=== PATIENT | female | born 1960 | race Caucasian/White ===

== ENCOUNTER 2022-04-18 14:26 | Inpatient (IN) | payer MEDICAID ==
[2022-04-18] MEDS ORDERED: Albuterol/Ipratropium 3.0-0.5 MG/3 ML Neb Soln NEB ONE (15:21)
[2022-04-18] MEDS ORDERED: Acetaminophen 325 MG Tab PO ONE (15:21)
[2022-04-18] MEDS ORDERED: Levalbuterol HCl 1.25 MG/3 ML Neb NEB ONE (16:48)
[2022-04-18] MEDS ORDERED: Levalbuterol HCl 1.25 MG/3 ML Neb ONE (16:50)
[2022-04-18] MEDS ORDERED: Ondansetron 4 MG Tab.DIS PO PRN (17:02)
[2022-04-18] MEDS ORDERED: cefTRIAXone 2 GM in Sodium Chloride 0.9% 100 ML IV SCH (17:15)
[2022-04-18] MEDS: cefTRIAXone 2 GM in Sodium Chloride 0.9% 100 ML IV SCH (18:37)
[2022-04-18] MEDS: Sodium Chloride 0.9% 1,000 ML IV SCH (18:37)
[2022-04-18] MEDS ORDERED: Insulin Regular, Human 100 Units/ML 3 ML Vial SUBCUT PRN (21:31)
[2022-04-18] MEDS: Acetaminophen 325 MG Tab PO PRN (23:09)
[2022-04-18] MEDS: Temazepam 7.5 MG Cap PO PRN (23:09)
[2022-04-18] MEDS: Insulin Regular, Human 100 Units/ML 3 ML Vial SUBCUT SCH (23:12)
[2022-04-19] MEDS: Acetaminophen 325 MG Tab PO PRN ×3 (04:14→19:34)
[2022-04-19] MEDS ORDERED: BETAMETH DIP TOP PRN (08:07)
[2022-04-19] MEDS ORDERED: ZINC TOP PRN (08:07)
[2022-04-19] MEDS ORDERED: Nystatin Topical Powder 15 GM Bottle TOP PRN (08:07)
[2022-04-19] MEDS ORDERED: traMADol 50 MG Tab PO PRN (08:07)
[2022-04-19] MEDS ORDERED: CLOTRIMAZOLE TOP PRN (08:07)
[2022-04-19] MEDS ORDERED: Levalbuterol HCl 0.63 MG/3 ML Neb INH SCH (08:15)
[2022-04-19] MEDS: Sodium Chloride 0.9% 1,000 ML IV SCH ×2 (08:56→22:58)
[2022-04-19] MEDS: Cyclobenzaprine 10 MG Tab PO PRN ×2 (08:57→22:59)
[2022-04-19] MEDS: Cholecalciferol (Vitamin D3) 5,000 UNIT Cap PO SCH (08:57)
[2022-04-19] MEDS: Vitamin B Complex With Vitamin C Cap PO SCH (08:59)
[2022-04-19] MEDS: Pantoprazole 40 MG Tab.CR PO SCH (08:59)
[2022-04-19] MEDS ORDERED: [UNRECOGNIZED DRUG - OTHER] MC SCH (09:00)
[2022-04-19] MEDS ORDERED: SPACER MC SCH (09:00)
[2022-04-19] MEDS ORDERED: [UNRECOGNIZED DRUG - OTHER] SUBCUT SCH (09:00)
[2022-04-19] MEDS ORDERED: Enoxaparin 30 MG/0.3 ML Syringe SUBCUT SCH (09:00)
[2022-04-19] MEDS ORDERED: BLOOD GLUCOSE METER CONTINUOUS SUBCUT SCH (09:00)
[2022-04-19] MEDS: Insulin Regular, Human 100 Units/ML 3 ML Vial SUBCUT SCH ×3 (09:01→19:55)
[2022-04-19] MEDS: Tiotropium Bromide 4 GM Inhalation Spray (2.5mcg/1 dose; 10 doses) INH SCH (09:19)
[2022-04-19] MEDS: Formoterol/Mometasone 100-5 MCG 8.8 GM Inhaler IH SCH ×2 (09:19→20:15)
[2022-04-19] MEDS: Levalbuterol HCl 0.63 MG/3 ML Neb INH SCH ×3 (09:19→20:15)
[2022-04-19] MEDS: Enoxaparin 40 MG/0.4 ML Syringe SUBCUT SCH (10:25)
[2022-04-19] MEDS: LIRAGLUTIDE 18 MG/3 ML SUBCUT SCH (10:28)
[2022-04-19] MEDS ORDERED: Magnesium Sulfate/Water 2 GM in Premix Bag 1 BAG IV ONE (12:15)
[2022-04-19] MEDS: cefTRIAXone 2 GM in Sodium Chloride 0.9% 100 ML IV SCH (18:25)
[2022-04-19] MEDS ORDERED: Montelukast 10 MG Tab PO SCH (21:00)
[2022-04-19] MEDS ORDERED: Pravastatin 20 MG Tab PO SCH (21:00)
[2022-04-19] MEDS: Temazepam 7.5 MG Cap PO PRN (23:09)
[2022-04-20] MEDS: Levalbuterol HCl 0.63 MG/3 ML Neb INH SCH (05:09)
[2022-04-20] MEDS: Tiotropium Bromide 4 GM Inhalation Spray (2.5mcg/1 dose; 10 doses) INH SCH (05:09)
[2022-04-20] MEDS: Formoterol/Mometasone 100-5 MCG 8.8 GM Inhaler IH SCH (05:09)
[2022-04-20] MEDS: Pantoprazole 40 MG Tab.CR PO SCH (08:19)
[2022-04-20] MEDS: Cholecalciferol (Vitamin D3) 5,000 UNIT Cap PO SCH (08:19)
[2022-04-20] MEDS: Vitamin B Complex With Vitamin C Cap PO SCH (08:19)
[2022-04-20] MEDS: Enoxaparin 40 MG/0.4 ML Syringe SUBCUT SCH (08:20)
[2022-04-20] MEDS: Acetaminophen 325 MG Tab PO PRN (08:20)
[2022-04-20] MEDS: LIRAGLUTIDE 18 MG/3 ML SUBCUT SCH (09:40)
[2022-04-20] MEDS: Insulin Regular, Human 100 Units/ML 3 ML Vial SUBCUT SCH (09:43)
[2022-04-20 11:57] VITALS: BP 120/68; PULSE 80
== END 2022-04-20 12:54 | disposition home or self-care (01) | DRG 194 ==
LOC: JD.ED 14:26 → JD.MS 17:02 → JD.ED 17:32
PROVIDERS: ADMIT Internal Medicine; ATTEND Internal Medicine
DX: J18.9 Pneumonia, unspecified organism (principal); J44.0 Chronic obstructive pulmonary disease with (acute) lower respiratory infection; J47.9 Bronchiectasis, uncomplicated; E11.649 Type 2 diabetes mellitus with hypoglycemia without coma; E78.00 Pure hypercholesterolemia, unspecified; K21.9 Gastro-esophageal reflux disease without esophagitis; M19.90 Unspecified osteoarthritis, unspecified site; R32 Unspecified urinary incontinence; F32.A Depression, unspecified; Z96.649 Presence of unspecified artificial hip joint; Z86.010 Personal history of colon polyps; Z79.4 Long term (current) use of insulin; Z79.899 Other long term (current) drug therapy; Z88.5 Allergy status to narcotic agent; Z88.0 Allergy status to penicillin; Z88.6 Allergy status to analgesic agent; Z88.8 Allergy status to other drugs, medicaments and biological substances; Z98.51 Tubal ligation status; Z87.891 Personal history of nicotine dependence
CPT/HCPCS: 36415; 71045; 71045-26; 80053; 81001; 82947; 83735; 85025; 86140; 87040; 87086; 94640; 94660; 94761; 97116-GP; 97162-GP; 97166-GO; 97530-GP; 99285; A9270-GY; J0696; J1650; J1815-GY; J3475; J7030; J7612-GY

== ENCOUNTER 2022-06-20 15:18 | Emergency (ER) | payer MEDICAID ==
[2022-06-20 19:41] VITALS: BP 133/69; PULSE 87
== END 2022-06-20 19:33 | disposition home or self-care (01) ==
LOC: JD.ED 15:18
DX: J18.9 Pneumonia, unspecified organism (principal); J47.1 Bronchiectasis with (acute) exacerbation; E78.00 Pure hypercholesterolemia, unspecified; E11.9 Type 2 diabetes mellitus without complications; Z88.5 Allergy status to narcotic agent; Z88.0 Allergy status to penicillin; Z88.2 Allergy status to sulfonamides; Z88.6 Allergy status to analgesic agent; Z79.899 Other long term (current) drug therapy; Z79.4 Long term (current) use of insulin; Z90.49 Acquired absence of other specified parts of digestive tract
CPT/HCPCS: 36415; 71046; 71046-26; 71250; 71250-26; 80053; 83690; 83735; 83880; 84484; 85025; 93005; 99285

== ENCOUNTER 2024-03-27 11:03 | Day surgery (SDC) | payer MEDICARE, MEDICAID ==
[~2024-03-27 11:03] MED LIST: Sodium Chloride 0.9% 10 ML Syringe FLUSH PRN; Sodium Chloride 0.9% 10 ML Syringe FLUSH SCH
[2024-03-27] MEDS: Lactated Ringers 1,000 ML IV SCH (11:30)
[2024-03-27] MEDS ORDERED: Propofol 200 MG/20 ML SDV ONE ×5 (12:28→13:30)
[2024-03-27] MEDS ORDERED: Lidocaine 2% 5 ML SDV ONE (12:31)
[2024-03-27 14:40] VITALS: BP 125/67; PULSE 81
== END 2024-03-27 14:38 | disposition home or self-care (01) ==
LOC: JD.SDS 11:03
PROVIDERS: ATTEND Surgery
DX: D12.3 Benign neoplasm of transverse colon (principal); D12.2 Benign neoplasm of ascending colon; D12.4 Benign neoplasm of descending colon; K62.1 Rectal polyp; K21.00 Gastro-esophageal reflux disease with esophagitis, without bleeding; K31.89 Other diseases of stomach and duodenum; K44.9 Diaphragmatic hernia without obstruction or gangrene; J44.9 Chronic obstructive pulmonary disease, unspecified; E11.9 Type 2 diabetes mellitus without complications; E78.2 Mixed hyperlipidemia; Z87.891 Personal history of nicotine dependence; Z79.4 Long term (current) use of insulin; Z79.899 Other long term (current) drug therapy; Z86.0100 Personal history of colon polyps, unspecified
CPT/HCPCS: 43239; 45380; J2704; J7120; 00813; J3490